=== PATIENT | female | born 1960 | race Caucasian/White ===

== ENCOUNTER 2017-03-01 12:01 | Observation (INO) | payer OTHER, MEDICARE ==
[2017-03-01] VITALS (9 sets, daily range): BP systolic 112–183; BP diastolic 67–108; PULSE 80–97; RESP 17–20; TEMP 97.8–98; O2SAT 95–99
[~2017-03-01] VITALS: Ht 162.6 cm; Wt 68.0 kg
[~2017-03-01 12:01] MED LIST: CHLO.12%30 SSP; CLIN150 PO; DIAZ10 PO; DICY10 PO; FENO1TAB76 PO; FIORTAB4 PO; LEVO.125 PO; MMW SS; OXYC1CON3 PO; OXYC60TA8 PO; PRED20 PO; PROT40TA PO; ZOVI400T15 PO
[2017-03-01] MEDS ORDERED: diphenhydrAMINE HCL 50 MG/ML VIAL IV PUSH ONE (12:45)
[2017-03-01] MEDS ORDERED: SODIUM CHLORIDE 0.9% FLUSH 10 ML FLUSH IVF PRN (12:45)
[2017-03-01] MEDS ORDERED: methylPREDNISolone SOD SUCC 40 MG/1 ML VIAL IV PUSH ONE (12:45)
[2017-03-01 13:00] LABS: AUTOMATED NEUTROPHIL # 6.4 TH/MM3 (1.8-7.7); BASOPHIL # 0.1 TH/MM3 (0-0.2); BASOPHIL % 0.6 % (0.0-2.0); EOSINOPHIL # 0.1 TH/MM3 (0-0.4); EOSINOPHIL % 1.2 % (0.0-4.0); HEMATOCRIT 42.4 % (35.0-46.0); HEMO FLAGS DIFF FINAL; LYMPH % 19.5 % (9.0-44.0); LYMPHOCYTE # 1.7 TH/MM3 (1.0-4.8); MEAN CELL VOLUME 101.3 FL (80.0-100.0); MEAN CORPUSCULAR HEMOGLOBIN 33.3 PG (27.0-34.0); MEAN CORPUSCULAR HGB CONC 32.9 % (32.0-36.0); MONO % 6.5 % (0.0-8.0); NEUT % 72.2 % (16.0-70.0); PLATELET COUNT 281 TH/MM3 (150-450); RED BLOOD COUNT 4.19 MIL/MM3 (4.00-5.30); RED CELL DISTRIBUTION WIDTH 13.1 % (11.6-17.2); WHITE BLOOD COUNT 8.9 TH/MM3 (4.0-11.0)
[2017-03-01 13:08] LABS: APTT (PATIENT) 26.6 SEC (24.3-30.1); PROTHROMBIN TIME - PATIENT 10.9 SEC (9.8-11.6)
[2017-03-01] MEDS ORDERED: ALDA100T PO (13:22)
[2017-03-01] MEDS ORDERED: FIORINAL2 PO (13:22)
[2017-03-01] MEDS ORDERED: DIAZ10 PO (13:22)
[2017-03-01] MEDS ORDERED: OXYC30TA PO (13:22)
[2017-03-01] MEDS ORDERED: LEVO.1 PO (13:22)
[2017-03-01] MEDS ORDERED: LEVO.05 PO (13:22)
[2017-03-01] MEDS ORDERED: OXYC40TA20 PO (13:22)
[2017-03-01 13:28] LABS: ALKALINE PHOSPHATASE 77 U/L (45-117); ALT (GPT) 19 U/L (10-53); ANION GAP 8 MEQ/L (5-15); BICARBONATE 28.5 MEQ/L (21.0-32.0); BLOOD UREA NITROGEN 8 MG/DL (7-18); CHLORIDE 97 MEQ/L (98-107); GLOMERULAR FILTRATION RATE 51 ML/MIN (>89); SODIUM (NA) 133 MEQ/L (136-145); TOTAL BILIRUBIN ADULT 0.4 MG/DL (0.2-1.0)
[2017-03-01] MEDS ORDERED: XARE10TA PO (13:28)
[2017-03-01 13:29] LABS: AST (GOT) 25 U/L (15-37); POTASSIUM 4.5 MEQ/L (3.5-5.1)
--- NOTE | 2017-03-01 14:14 | PD ---
HPI Chief Complaint: Chest Pain Time Seen by Provider: 12:07 Travel History International Travel<30 days: No Contact w/Intl Traveler<30days: No Traveled to known affect area: No History of Present Illness HPI This is a 56-year-old female who presents to the emergency department with chest discomfort that has been going on intermittently over the week and then has worsened today described as a stabbing pain in the left side of the chest, radiating down the left arm lasting for several minutes intermittently and then subsiding. She does acknowledge some shortness of breath and nausea. She was just hospitalized at an outside hospital and diagnosed with bilateral pulmonary emboli as well as pleural effusions. Patient was put on Eliquis. She says that the chest pain now is different from the chest pain that brought her into the hospital a week ago. She is due for a nuclear stress test but hasn't had one. Her last one was 10 years ago. She follows with Dr. Cabrera as an outpatient. PFSH Past Medical History Hx Anticoagulant Therapy: Yes (ELIQUIS) Cardiovascular Problems: Yes Chest Pain: Yes Diminished Hearing: No Gastrointestinal Disorders: Yes GERD: Yes Hiatal Hernia: Yes Musculoskeletal: Yes Respiratory: Yes (SHILPI PULMONARY EMBOLI) Migraines: Yes ?: Not Menopausal: Yes : 2 Para: 2 Past Surgical History Gynecologic Surgery: Yes Hysterectomy: Yes Neurologic Surgery: Yes (NECK FUSION X 2, BACK FUSION X 1) Tonsillectomy: Yes Other Surgery: Yes (HYSTERECTOMY, NECK/BACK FUSION, BREAST AUGMENTATION, RHINOPLASTY) Social History Alcohol Use: No Tobacco Use: No Substance Use: No Allergies-Medications (Allergen,Severity, Reaction): Coded Allergies: Contrast Media (Verified Allergy, Severe, Rash, 03/01/17) Iodine (Verified Allergy, Severe, Rash, 03/01/17) Sulfa (Verified Allergy, Severe, Anaphylaxis, 03/01/17) Darvocet-N 100 (Unverified Adverse Reaction, Unknown, itchy & red palms, ) pt. states above rx. Demerol (Verified Adverse Reaction, Unknown, red rash, 03/01/17) BLISTER ON HAND Reported Meds & Prescriptions Reported Meds & Active Scripts Active Reported Xarelto (Rivaroxaban) 10 Mg Tab 5 Mg PO BID Valium (Diazepam) 10 Mg Tab 10 Mg PO DAILY PRN Fiorinal (Butalbital/Aspirin/Caffeine) 50-325-40 Mg Cap 1 Cap PO Q4H PRN Do not exceed 6 capsules/day. Oxycodone (Oxycodone HCl) 30 Mg Tab 30 Mg PO Q8H PRN Aldactone (Spironolactone) 100 Mg Tab 100 Mg PO DAILY Synthroid (Levothyroxine Sodium) 50 Mcg Tab 50 Mcg PO EVERY OTHER DAY BRAND MEDICALLY NECESSARY Synthroid (Levothyroxine Sodium) 100 Mcg Tab 100 Mcg PO EVERY OTHER DAY BRAND MEDICALLY NECESSARY Oxycontin (Oxycodone HCl) 40 Mg Tab.er.12h 80 Mg PO BID Review of Systems Except as stated in HPI: all other systems reviewed are Neg Physical Exam Narrative GENERAL:Well appearing, no acute distress SKIN: Focused skin assessment warm and dry. HEAD: Atraumatic. Normocephalic. EYES: Pupils equal and round. No injection or drainage. ENT: Moist mucous membranes NECK: Trachea midline. CARDIOVASCULAR: Regular rate and rhythm. No murmur appreciated. RESPIRATORY: Clear to auscultation. Breath sounds equal bilaterally. GASTROINTESTINAL: Abdomen soft, non-tender, nondistended. MUSCULOSKELETAL: No obvious deformities. NEUROLOGICAL: Awake and alert. No obvious cranial nerve deficits. Moving all extremities. PSYCHIATRIC: Appropriate mood and affect; insight and judgment normal. Data Data Last Documented VS Vital Signs Date Time Temp Pulse Resp B/P Pulse Ox O2 Delivery O2 Flow Rate FiO2 03/01/17 14:00 80 18 143/76 97 Nasal Cannula 2 03/01/17 12:04 97.8 Orders Electrocardiogram (03/01/17 ) Diphenhydramine Inj (Benadryl Inj) (03/01/17 12:45) Methylprednisolone So Succ Inj (Solumedr (03/01/17 12:45) Electrocardiogram (03/01/17 12:45) Complete Blood Count With Diff (03/01/17 12:45) Comprehensive Metabolic Panel (03/01/17 12:45) Prothrombin Time / Inr (Pt) (03/01/17 12:45) Act Partial Throm Time (Ptt) (03/01/17 12:45) Troponin I (03/01/17 12:45) Ecg Monitoring (03/01/17 12:45) Bilateral Bp Monitoring (03/01/17 12:45) Iv Access Insert/Monitor (03/01/17 12:45) Oximetry (03/01/17 12:45) Oxygen Administration (03/01/17 12:45) Sodium Chloride 0.9% Flush (Ns Flush) (03/01/17 12:45) Ct Pulmonary Angiogram (03/01/17 12:45) Labetalol Inj (Trandate Inj) (03/01/17 14:15) Iohexol 350 Inj (Omnipaque 350 Inj) (03/01/17 15:09) Admit Order (Ed Use Only) (03/01/17 15:46) Labs Laboratory Tests Test 03/01/17 12:50 White Blood Count 8.9 TH/MM3 Red Blood Count 4.19 MIL/MM3 Hemoglobin 13.9 GM/DL Hematocrit 42.4 % Mean Corpuscular Volume 101.3 FL Mean Corpuscular Hemoglobin 33.3 PG Mean Corpuscular Hemoglobin 32.9 % Concent Red Cell Distribution Width 13.1 % Platelet Count 281 TH/MM3 Mean Platelet Volume 8.8 FL Neutrophils (%) (Auto) 72.2 % Lymphocytes (%) (Auto) 19.5 % Monocytes (%) (Auto) 6.5 % Eosinophils (%) (Auto) 1.2 % Basophils (%) (Auto) 0.6 % Neutrophils # (Auto) 6.4 TH/MM3 Lymphocytes # (Auto) 1.7 TH/MM3 Monocytes # (Auto) 0.6 TH/MM3 Eosinophils # (Auto) 0.1 TH/MM3 Basophils # (Auto) 0.1 TH/MM3 CBC Comment DIFF FINAL Differential Comment Prothrombin Time 10.9 SEC Prothromb Time International 1.0 RATIO Ratio Activated Partial 26.6 SEC Thromboplast Time Sodium Level 133 MEQ/L Potassium Level 4.5 MEQ/L Chloride Level 97 MEQ/L Carbon Dioxide Level 28.5 MEQ/L Anion Gap 8 MEQ/L Blood Urea Nitrogen 8 MG/DL Creatinine 1.11 MG/DL Estimat Glomerular Filtration 51 ML/MIN Rate Random Glucose 95 MG/DL Calcium Level 9.3 MG/DL Total Bilirubin 0.4 MG/DL Aspartate Amino Transf 25 U/L (AST/SGOT) Alanine Aminotransferase 19 U/L (ALT/SGPT) Alkaline Phosphatase 77 U/L Troponin I LESS THAN 0.02 NG/ML Total Protein 7.6 GM/DL Albumin 3.4 GM/DL [facility] Medical Decision Making Medical Screen Exam Complete: Yes Emergency Medical Condition: Yes Interpretation(s) Hypertensive EKG: Mild tachycardia, some T-wave inversion in V1 through V3 No leukocytosis Mild hyponatremia Last [address] Angiography 03/01/17 1245 Signed Impressions: Service Date/Time: Wednesday, March 01, 2017 14:57 - CONCLUSION: Negative for central pulmonary emboli Pedro Joyce MD FACR Differential Diagnosis acute coronary syndrome, pulmonary embolism, pneumonia, costochondritis Narrative Course This is a 56-year-old female whose had about a week of intermittent chest discomfort that radiates to her left arm with some shortness of breath and nausea. EKG demonstrates some T-wave inversions in V1 through V3. She was just admitted to an outside hospital in the setting of a diagnosis of pulmonary embolism. Here she was quite hypertensive. She is placed in a monitored an IV was established. Labs are obtained which demonstrate a normal troponin. A CT pulmonary angiogram was obtained which demonstrates no PE currently. I reviewed the CT findings from the outside hospital. She had 2 subsegmental PEs found. Unclear if this were were causing her symptoms but now she has resolution on imaging and she continues to have new and worsening symptoms. She is due to have a nuclear stress test with Dr. Cabrrea and she hasn't had one in 10 years. I think it's reasonable to keep her in observation in the chest pain center and to consider wrist ratification tomorrow morning given her symptoms are escalating. Diagnosis Primary Impression: Chest pain Qualified Code: R07.9 - Chest pain, unspecified type Admitting Information Admitting Physician Requests: Observation Gertrude Soares MD Mar 01, 2017 14:14
[2017-03-01] MEDS ORDERED: LABETALOL HCL 100 MG/20 ML VIAL IV PUSH PRN (14:15)
[2017-03-01] MEDS ORDERED: IOHEXOL 350 MG/ML 10 ML VIAL (for RAD DIAG) IV ONE (15:09)
--- NOTE | 2017-03-01 15:23 | RADRPT ---
EXAM DATE/TIME: 03/01/2017 14:57 [facility] COMPARISON: No previous studies available for comparison. INDICATIONS : Short of breath, evaluate for pulmonary embolism. IV CONTRAST: 50 cc Omnipaque 350 (iohexol) IV RADIATION DOSE: 6.76 CTDIvol (mGy) MEDICAL HISTORY : Gastroesophageal reflux disease. Hiatal hernia SURGICAL HISTORY : Tonsillectomy. Hysterectomy. ENCOUNTER: Initial ACUITY: 1 day PAIN SCALE: 3/10 LOCATION: Left chest Patient was premedicated for underlying contrast media allergy. TECHNIQUE: Volumetric scanning of the chest was performed using a pulmonary embolism protocol MIP images were re constructed. Using automated exposure control and adjustment of the mA and/or kV according to patien t size, radiation dose was kept as low as reasonably achievable to obtain optimal diagnostic quality images. DICOM format image data is available electronically for review and comparison. Follow-up recommendations for incidentally detected pulmonary nodules are based at a minimum on nodul e size and patient risk factors according to Fleischner Society Guidelines. FINDINGS: PULMONARY ARTERIES: No filling defects are seen in the pulmonary arteries through the segmental level. LUNGS: There is no consolidation or pneumothorax . No concerning pulmonary nodule is visualized. PLEURAE: There is no pleural thickening or pleural effusion. MEDIASTINUM: There is good visualization of the great vessels of the middle mediastinum. No evidence of mediastin al or hilar adenopathy/mass. MUSCULOSKELETAL: Within normal limits for patient age. MISCELLANEOUS: Breast implants are evident. There is again nonspecific 1.6 there are mass left kidney incompletely evaluated. CONCLUSION: Negative for central pulmonary emboli Pedro Joyce MD FACR on March 01, 2017 at 15:20 Board Certified Radiologist. This report was verified electronically.
[2017-03-01] MEDS ORDERED: NON-FORMULARY DRUG (Oxycodone 30 MG) PO PRN (16:45)
[2017-03-01] MEDS ORDERED: DIAZEPAM 10 MG TAB PO PRN (16:45)
[2017-03-01] MEDS ORDERED: ONDANSETRON HCL 4 MG/2 ML VIAL IV PRN (17:00)
[2017-03-01] MEDS ORDERED: SODIUM CHLORIDE 0.9% FLUSH 5 ML FLUSH IVF PRN (17:00)
[2017-03-01] MEDS: PANTOPRAZOLE SOD 40 MG DELAYED RELEASE TAB PO SCH (17:00)
--- NOTE | 2017-03-01 17:01 | HHI.HP ---
[facility] Primary Care Physician Krystal Torres DO Chief Complaint Chest pain History of Present Illness This is a 56-year-old female that presents to ED to evaluate chest discomfort. She was recently diagnosed with a pulmonary embolus last week and has been on Eliquis. She states that this discomfort is different than the discomfort that she has been having secondary to the pulmonary emboli. She states that the discomfort began this morning. It was in the center of her chest. Is a very severe sharp stabbing discomfort. It felt deep. It will last for a few minutes but continue to recur intermittently for couple hours. She was short of breath with it. She was nauseous with it. Denies diaphoresis. Denies knowledge of coronary artery disease and states she follows with Dr. Cabrera of cardiology secondary to family history of coronary artery disease. She has had a stress test in the past states it is been years ago. She believes she is scheduled this coming week to have a stress test with Dr. Cabrera. Review of Systems General: Patient denies fevers, chills recent, and recent travel HEENT: Patient denies headache, sore throat, difficulty swallowing. Cardiovascular: Has the chest discomfort as mentioned above. Denies sensation of heart beating rapidly or irregularly. No syncope. Denies diaphoresis. Respiratory: She has been short of breath. Denies inspirational chest discomfort. Denies coughing wheezing or hemoptysis. GI: She has been nauseous. Patient denies vomiting, diarrhea, abdominal pain, bloody stools. Musculoskeletal: Complains of chronic back pain. Patient denies joint pain or edema. Denies calf pain or edema. Neurovascular: Patient denies numbness, tingling, weakness in extremities. Denies headache. Endocrine: Denies polyuria and polydipsia. Hematologic: Denies easy bruising. Skin: Denies rash or itching. Past Family Social History Allergies: Coded Allergies: Contrast Media (Verified Allergy, Severe, Rash, 03/01/17) Iodine (Verified Allergy, Severe, Rash, 03/01/17) Sulfa (Verified Allergy, Severe, Anaphylaxis, 03/01/17) Darvocet-N 100 (Unverified Adverse Reaction, Unknown, itchy & red palms, ) pt. states above rx. Demerol (Verified Adverse Reaction, Unknown, red rash, 03/01/17) BLISTER ON HAND Past Medical History Recently diagnosed with pulmonary emboli and is on Eliquis. Chronic back pain. Hypothyroidism. Migraines. Denies hypertension, hyperlipidemia, diabetes, and known CAD. Past Surgical History Multiple back surgeries. Hysterectomy. Reported Medications Reported Meds & Active Scripts Active Reported Xarelto (Rivaroxaban) 10 Mg Tab 5 Mg PO BID Valium (Diazepam) 10 Mg Tab 10 Mg PO DAILY PRN Fiorinal (Butalbital/Aspirin/Caffeine) 50-325-40 Mg Cap 1 Cap PO Q4H PRN Do not exceed 6 capsules/day. Oxycodone (Oxycodone HCl) 30 Mg Tab 30 Mg PO Q8H PRN Aldactone (Spironolactone) 100 Mg Tab 100 Mg PO DAILY Synthroid (Levothyroxine Sodium) 50 Mcg Tab 50 Mcg PO EVERY OTHER DAY BRAND MEDICALLY NECESSARY Synthroid (Levothyroxine Sodium) 100 Mcg Tab 100 Mcg PO EVERY OTHER DAY BRAND MEDICALLY NECESSARY Oxycontin (Oxycodone HCl) 40 Mg Tab.er.12h 80 Mg PO BID Active Ordered Medications Current Medications Medications (Trade) Dose Ordered Sig/Victor M Route Start Time Stop Time Status Last Admin (NS Flush) 2 ml UNSCH PRN IVF 03/01/17 12:45 (Trandate Inj) 10 mg Q20M PRN IV PUSH 03/01/17 14:15 (OxyCONTIN CR) 80 mg BID PO 03/01/17 21:00 UNV (Valium) 10 mg DAILY PRN PO 03/01/17 16:45 UNV (Xarelto) 5 mg BID PO 03/01/17 21:00 UNV (Aldactone) 100 mg DAILY PO 03/02/17 09:00 UNV Non-Formulary Medication 30 mg Q8H PRN PO 03/01/17 16:45 UNV Family History She states that her father at age 59 of coronary artery disease. Her mother had a myocardial infarction as well. Social History Patient denies smoking. Denies alcohol or illicit drug. Physical Exam Vital Signs Vital Signs Date Time Temp Pulse Resp B/P Pulse Ox O2 Delivery O2 Flow Rate FiO2 03/01/17 14:00 80 18 143/76 97 Nasal Cannula 2 03/01/17 12:59 96 Room Air 03/01/17 12:59 180/108 165/105 03/01/17 12:59 Nasal Cannula 2 03/01/17 12:40 84 18 180/108 98 Nasal Cannula 2 03/01/17 12:18 93 20 180/108 96 Room Air 03/01/17 12:15 91 20 98 Room Air 03/01/17 12:04 97.8 97 17 183/108 98 Physical Exam GENERAL: This is a well-nourished, well-developed patient, in no apparent distress. Patient speaks in clear complete sentences. Patient is pleasant. HEENT: Head is atraumatic and normocephalic. Neck is supple without lymphadenopathy and trachea is midline. No JVD or carotid bruits. CARDIOVASCULAR: Regular rate and rhythm without murmurs, gallops, or rubs. RESPIRATORY: Clear to auscultation. Breath sounds equal bilaterally. No wheezes , rales, or rhonchi. Chest wall is nontender. No use of accessory muscles. GASTROINTESTINAL: Abdomen is nontender, nondistended. Abdomen soft. No obvious pulsatile mass or bruit. Normal bowel sounds in all quadrants. MUSCULOSKELETAL: There is discomfort with repositioning and movement of the lower back. This is chronic. Patient is moving upper and lower extremities freely. No calf tenderness or edema, no Homans sign. Strong pulses in upper and lower extremities. NEUROLOGICAL: Patient is alert and oriented. Cranial nerves 2-12 are grossly intact. No focal deficits and speech is clear. SKIN: No rash and turgor is normal. Laboratory Laboratory Tests Test 03/01/17 12:50 White Blood Count 8.9 Red Blood Count 4.19 Hemoglobin 13.9 Hematocrit 42.4 Mean Corpuscular Volume 101.3 Mean Corpuscular Hemoglobin 33.3 Mean Corpuscular Hemoglobin 32.9 Concent Red Cell Distribution Width 13.1 Platelet Count 281 Mean Platelet Volume 8.8 Neutrophils (%) (Auto) 72.2 Lymphocytes (%) (Auto) 19.5 Monocytes (%) (Auto) 6.5 Eosinophils (%) (Auto) 1.2 Basophils (%) (Auto) 0.6 Neutrophils # (Auto) 6.4 Lymphocytes # (Auto) 1.7 Monocytes # (Auto) 0.6 Eosinophils # (Auto) 0.1 Basophils # (Auto) 0.1 CBC Comment DIFF FINAL Differential Comment Prothrombin Time 10.9 Prothromb Time International 1.0 Ratio Activated Partial 26.6 Thromboplast Time Sodium Level 133 Potassium Level 4.5 Chloride Level 97 Carbon Dioxide Level 28.5 Anion Gap 8 Blood Urea Nitrogen 8 Creatinine 1.11 Estimat Glomerular Filtration 51 Rate Random Glucose 95 Calcium Level 9.3 Total Bilirubin 0.4 Aspartate Amino Transf 25 (AST/SGOT) Alanine Aminotransferase 19 (ALT/SGPT) Alkaline Phosphatase 77 Troponin I LESS THAN 0.02 Total Protein 7.6 Albumin 3.4 Result Diagram: 03/01/17 1250 03/01/17 1250 Imaging Last [address] Angiography 03/01/17 1245 Signed Impressions: Service Date/Time: Wednesday, March 01, 2017 14:57 - CONCLUSION: Negative for central pulmonary emboli Pedro Joyce MD FACR Course Initial EKG has sinus rhythm without significant ST segment depressions or elevations. Assessment and Plan Assessment and Plan * Chest pain: Patient will continue to have serial cardiac enzymes and EKGs for ruling out purposes. She will be seen by Dr. Cisse of cardiology in the chest pain center in the morning. 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 Patient will have a Lexiscan and if she rules out. She'll be discharged home if stress test is nonischemic with instructions to follow-up with her PCP and her truck rental manager. * Recent PE: Continue Eliquis. * Hypothyroidism: Continue current medication. * Chronic back pain: Continue current medication. Patient is stable at this time. She is agreeable to this plan. Shola Bashir Mar 01, 2017 17:01
[2017-03-01] MEDS ORDERED: SODIUM CHLORID 0.9% 500 ML INJ 500 ML IV SCH (17:15)
[2017-03-01] MEDS ORDERED: PILL SPLITTER OTHER PRN (17:15)
[2017-03-01 19:19] LABS: CREATINE KINASE 35 U/L (26-192)
[2017-03-01] MEDS ORDERED: SPIRONOLACTONE 100 MG TAB PO SCH (21:00)
[2017-03-01] MEDS: SODIUM CHLORIDE 0.9% FLUSH 5 ML FLUSH IVF SCH (21:00)
[2017-03-01] MEDS: RIVAROXABAN 10 MG TAB PO SCH (21:50)
[2017-03-01] MEDS: oxyCODONE HCL 80 MG CONTROLLED RELEASE TAB PO SCH (21:51)
[2017-03-01 23:04] LABS: CREATINE KINASE 23 U/L (26-192)
[2017-03-02] VITALS (7 sets, daily range): BP systolic 101–125; BP diastolic 73–77; PULSE 62–84; RESP 16–20; TEMP 97.6–98; O2SAT 94–98
[2017-03-02] MEDS ORDERED: LEVOTHYROXINE SODIUM 50 MCG TAB PO SCH (06:00)
[2017-03-02] MEDS ORDERED: REGADENOSON INJ 0.4 MG/5 ML SYR ONE (08:33)
--- NOTE | 2017-03-02 08:38 | EKG ---
Date Performed: 03/01/2017 Time Performed: 19:13:39 PTAGE: 56 years EKG: Sinus rhythm LOW QRS VOLTAGE IN PRECORDIAL LEADS NONSPECIFIC T CHANGES IN SEPTAL LEADS BORDERLINE ECG NO SIG RENDON GE FROM PRIOR PREVIOUS TRACING : 03/01/2017 16.43 DOCTOR: Henrry Cisse Interpretating Date/Time 03/02/2017 08:37:43
--- NOTE | 2017-03-02 08:40 | EKG ---
Date Performed: 03/01/2017 Time Performed: 12:26:11 PTAGE: 56 years EKG: Sinus rhythm LOW QRS VOLTAGE IN PRECORDIAL LEADS NONSPECIFIC T WAVE CHANGES BORDERLINE ECG PREVIOUS TRACING : 12/09/2007 14.26 DOCTOR: Henrry Cisse Interpretating Date/Time 03/02/2017 08:39:25
--- NOTE | 2017-03-02 08:40 | EKG ---
Date Performed: 03/01/2017 Time Performed: 16:43:15 PTAGE: 56 years EKG: Sinus rhythm LOW QRS VOLTAGE IN PRECORDIAL LEADS BORDERLINE ECG NOSIGNIFICANT CHANGE PREVIOUS TRACING : 03/01/2017 12.26 DOCTOR: Henrry Cisse Interpretating Date/Time 03/02/2017 08:38:48
[2017-03-02] MEDS ORDERED: SPIRONOLACTONE 100 MG TAB PO SCH (09:00)
[2017-03-02] MEDS: SODIUM CHLORIDE 0.9% FLUSH 5 ML FLUSH IVF SCH (09:00)
[2017-03-02] MEDS: PANTOPRAZOLE SOD 40 MG DELAYED RELEASE TAB PO SCH (09:00)
[2017-03-02] MEDS: oxyCODONE HCL 80 MG CONTROLLED RELEASE TAB PO SCH (10:01)
[2017-03-02] MEDS: RIVAROXABAN 10 MG TAB PO SCH (10:01)
--- NOTE | 2017-03-02 12:50 | RADRPT ---
EXAM DATE/TIME: 03/02/2017 08:09 [facility] COMPARISON: No previous studies available for comparison. INDICATIONS : Left chest pain with dyspnea. Angina. DOSE: 27.1 mCi Tc99m Myoview at stress. 8.8 mCi Tc99m Myoview at rest. 0.4 mg Lexiscan STRESS SYMPTOMS: Dyspnea, facial flush and hot. EJECTION FRACTION: > 70% MEDICAL HISTORY : Gastroesophageal reflux disease. Pulmonary embolism SURGICAL HISTORY : Tonsillectomy. Hysterectomy. ENCOUNTER: Initial ACUITY: 1 week PAIN SCALE: 7/10 LOCATION: Left chest TECHNIQUE: The patient underwent pharmacologic stress with infusion of prescribed dose. Continuous ECG tracing was monitored during stress. Gated SPECT imaging was performed after stress and conventional SPECT i maging was performed at rest. The examination was performed on a SPECT/CT scanner, both attenuation and non-corrected datasets were reviewed. FINDINGS: DISTRIBUTION: The maximum perfused segment at stress is in the lateral wall. PERFUSION STUDY: The pattern of perfusion at stress is within normal limits. GATED STUDY: There is intact wall motion and thickening without hypokinetic or dyskinetic segments. CONCLUSION: Negative study. No evidence of stress-induced ischemia. Normal wall motion. RISK CATEGORY: Low Jose Raul Flores MD on March 02, 2017 at 12:48 Board Certified Radiologist. This report was verified electronically.
--- NOTE | 2017-03-02 13:14 | HHI.DCPOC ---
Discharge Care Plan Diagnosis: (1) Chest pain Goals to Promote Your Health * To prevent worsening of your condition and complications * To maintain your health at the optimal level Directions to Meet Your Goals Take your medications as prescribed Follow your dietary instruction Follow activity as directed Keep your appointments as scheduled Take your immunizations and boosters as scheduled If your symptoms worsen call your PCP, if no PCP go to Urgent Care Center or Emergency Room Smoking is Dangerous to Your Health. Avoid second hand smoke Call the 24-hour hour crisis hotline for domestic abuse at Shola Bashir Mar 02, 2017 13:14
[2017-03-03] MEDS ORDERED: LEVOTHYROXINE SODIUM 100 MCG TAB PO SCH (06:00)
--- NOTE | 2017-03-03 11:32 | TR ---
Date Performed: 03/02/2017 Time Performed: 09:04:38 DOCTOR: Henrry Cisse DRUG LIST: CLINICAL HISTORY: REASON FOR TEST: CHEST PAIN REASON FOR ENDING: OBSERVATION: CONCLUSION: Lexiscan stress test was performed under standard four minute protocol. Radionuclide was injected one minute prior to ending the test. No electrocardiographic abormalities were present to suggest ischemia. Nuclear imaging and interpretation are pending. COMMENTS: Negative study pending review of scan.
== END 2017-03-02 14:31 | disposition home or self-care (01) ==
LOC: NEPC 12:01 → NEDA 15:48 → NEPFCDU 18:32
PROVIDERS: ADMIT Internal Medicine Interventional Cardiology; ATTEND Internal Medicine Interventional Cardiology
DX: R07.9 Chest pain, unspecified (principal); R00.0 Tachycardia, unspecified; E87.1 Hypo-osmolality and hyponatremia; R06.02 Shortness of breath; R03.0 Elevated blood-pressure reading, without diagnosis of hypertension; R06.00 Dyspnea, unspecified; R11.0 Nausea; I20.9 Angina pectoris, unspecified; E03.9 Hypothyroidism, unspecified; M54.9 Dorsalgia, unspecified; G89.29 Other chronic pain; G43.909 Migraine, unspecified, not intractable, without status migrainosus; I26.99 Other pulmonary embolism without acute cor pulmonale; K21.9 Gastro-esophageal reflux disease without esophagitis; J90 Pleural effusion, not elsewhere classified; Z79.01 Long term (current) use of anticoagulants; Z79.899 Other long term (current) drug therapy; Z86.711 Personal history of pulmonary embolism; Z82.49 Family history of ischemic heart disease and other diseases of the circulatory system
CPT/HCPCS: 71275; 78452; 80053; 82550; 84484; 85025; 85610; 85730; 93005; 93017; 96365; 96366; 96375; 99285; A9502; G0378; J1200; J2785; J2920; J7040; Q9967

== ENCOUNTER 2017-09-16 17:03 | Emergency (ER) | payer OTHER, MEDICARE ==
[~2017-09-16] VITALS: Ht 162.6 cm; Wt 70.0 kg
[~2017-09-16 17:03] MED LIST changes: +ALDA100T PO; -CHLO.12%30 SSP; -CLIN150 PO; -DICY10 PO; -FENO1TAB76 PO; +FIORINAL2 PO; -FIORTAB4 PO; +LEVO.05 PO; +LEVO.1 PO; -LEVO.125 PO; -MMW SS; -OXYC1CON3 PO; +OXYC30TA PO; +OXYC40TA20 PO; -OXYC60TA8 PO; -PRED20 PO; -PROT40TA PO; +XARE10TA PO; -ZOVI400T15 PO
[2017-09-16 17:05] VITALS: BP 158/94; PULSE 86; RESP 16; TEMP 98.4; O2SAT 98
[2017-09-16] MEDS ORDERED: BETH10TA2 PO (17:53)
[2017-09-16] MEDS ORDERED: ROSU1TAB6 PO (17:53)
[2017-09-16 18:34] LABS: AUTOMATED NEUTROPHIL # 6.1 TH/MM3 (1.8-7.7); BASOPHIL # 0.1 TH/MM3 (0-0.2); BASOPHIL % 0.9 % (0.0-2.0); EOSINOPHIL # 0.1 TH/MM3 (0-0.4); HEMATOCRIT 39.3 % (35.0-46.0); HEMOGLOBIN 13.6 GM/DL (11.6-15.3); LYMPH % 22.5 % (9.0-44.0); MEAN CELL VOLUME 100.9 FL (80.0-100.0); MEAN CORPUSCULAR HEMOGLOBIN 34.8 PG (27.0-34.0); MEAN CORPUSCULAR HGB CONC 34.5 % (32.0-36.0); MEAN PLATELET VOLUME 9.6 FL (7.0-11.0); MONO % 7.5 % (0.0-8.0); MONOCYTE # 0.7 TH/MM3 (0-0.9); NEUT % 68.1 % (16.0-70.0); PLATELET COUNT 275 TH/MM3 (150-450); RED CELL DISTRIBUTION WIDTH 14.2 % (11.6-17.2)
[2017-09-16 18:56] LABS: ALBUMIN 4.2 GM/DL (3.4-5.0); AST (GOT) 23 U/L (15-37); BICARBONATE 31.7 MEQ/L (21.0-32.0); BLOOD UREA NITROGEN 14 MG/DL (7-18); CALCIUM 9.3 MG/DL (8.5-10.1); CHLORIDE 99 MEQ/L (98-107); CREATININE 1.42 MG/DL (0.50-1.00); GLOMERULAR FILTRATION RATE 38 ML/MIN (>89); GLUCOSE,RANDOM 121 MG/DL (74-106); SODIUM (NA) 137 MEQ/L (136-145)
[2017-09-16 18:57] LABS: ALT (GPT) 27 U/L (10-53)
[2017-09-16 19:00] LABS: ALKALINE PHOSPHATASE 72 U/L (45-117); TOTAL BILIRUBIN ADULT 0.4 MG/DL (0.2-1.0); TOTAL PROTEIN 7.8 GM/DL (6.4-8.2); TROPONIN I LESS THAN 0.02 NG/ML (0.02-0.05)
--- NOTE | 2017-09-16 19:19 | RADRPT ---
EXAM DATE/TIME: 09/16/2017 18:40 [facility] COMPARISON: No previous studies available for comparison. INDICATIONS : Weakness and left arm pain. RADIATION DOSE: 51.02 CTDIvol (mGy) MEDICAL HISTORY : None SURGICAL HISTORY : Hysterectomy. Fusion, cervical.Fusion, lumbar. ENCOUNTER: Initial ACUITY: 1 day PAIN SCALE: 5/10 LOCATION: cranial TECHNIQUE: Multiple contiguous axial images were obtained of the head. Using automated exposure control and adj ustment of the mA and/or kV according to patient size, radiation dose was kept as low as reasonably a chievable to obtain optimal diagnostic quality images. DICOM format image data is available electro nically for review and comparison. FINDINGS: CEREBRUM: The ventricles are normal for age. No evidence of midline shift, mass lesion, hemorrhage or acute in farction. No extra-axial fluid collections are seen. POSTERIOR FOSSA: The cerebellum and brainstem are intact. The 4th ventricle is midline. The cerebellopontine angle i s unremarkable. EXTRACRANIAL: The visualized portion of the orbits is intact. SKULL: The calvaria is intact. No evidence of skull fracture. CONCLUSION: Normal examination. Jose Raul Ramirez MD on September 16, 2017 at 19:17 Board Certified Radiologist. This report was verified electronically.
--- NOTE | 2017-09-16 19:27 | PD ---
HPI Chief Complaint: Numbness/Tingling Time Seen by Provider: 17:40 Travel History International Travel<30 days: No Contact w/Intl Traveler<30days: No Traveled to known affect area: No History of Present Illness HPI Patient is a 56-year-old female who comes in complaining of left arm tingling. She says it started this morning. She has a history of cervical spine issues and has had several surgeries. She says it felt like this in the past when she was having an issue with her spine. She denies any chest pain or shortness of breath. She denies any injury. She says she is having neck and back pain. She denies any headache. She denies fever chills. She says she has not taken her extended release oxycodone since 5 AM. Movement makes her symptoms worse. Severity is mild to moderate. She does have an appointment with her orthopedic surgeon tomorrow. PFSH Past Medical History Hx Anticoagulant Therapy: Yes (ELIQUIS) Cardiovascular Problems: Yes Chest Pain: Yes Diminished Hearing: No Gastrointestinal Disorders: Yes GERD: Yes Hiatal Hernia: Yes Musculoskeletal: Yes Respiratory: Yes (SHILPI PULMONARY EMBOLI) Migraines: Yes ?: Not Menopausal: Yes : 2 Para: 2 Past Surgical History Gynecologic Surgery: Yes Hysterectomy: Yes Neurologic Surgery: Yes (NECK FUSION X 2, BACK FUSION X 1) Tonsillectomy: Yes Other Surgery: Yes (HYSTERECTOMY, NECK/BACK FUSION, BREAST AUGMENTATION, RHINOPLASTY) Social History Alcohol Use: No Tobacco Use: No Substance Use: No Allergies-Medications (Allergen,Severity, Reaction): Coded Allergies: Sulfa (Sulfonamide Antibiotics) (Unverified Allergy, Severe, Anaphylaxis, 03/12/17) diatrizoate meglumine (Unverified Allergy, Severe, Rash, 03/12/17) gadobenic acid (Unverified Allergy, Severe, Rash, 03/12/17) gadodiamide (Unverified Allergy, Severe, Rash, 03/12/17) gadoteridol (Unverified Allergy, Severe, Rash, 03/12/17) iodine (Unverified Allergy, Severe, Rash, 03/12/17) iodixanol (Unverified Allergy, Severe, Rash, 03/12/17) iohexol (Unverified Allergy, Severe, Rash, 03/12/17) potassium iodide (Unverified Allergy, Severe, Rash, 03/12/17) povidone-iodine (Unverified Allergy, Severe, Rash, 03/12/17) sodium iodide (Unverified Allergy, Severe, Rash, 03/12/17) sodium iodide (Unverified Allergy, Severe, Rash, 03/12/17) acetaminophen (Unverified Adverse Reaction, Unknown, itchy & red palms, ) pt. states above rx. meperidine (Unverified Adverse Reaction, Unknown, red rash, 03/12/17) BLISTER ON HAND propoxyphene (Unverified Adverse Reaction, Unknown, itchy & red palms, ) pt. states above rx. Reported Meds & Prescriptions Reported Meds & Active Scripts Active Reported Rosuvastatin (Rosuvastatin Calcium) 10 Mg Tab 10 Mg PO HS Bethanechol 10 Mg Tab 10 Mg PO QID Valium (Diazepam) 10 Mg Tab 10 Mg PO DAILY PRN Fiorinal (Butalbital/Aspirin/Caffeine) 50-325-40 Mg Cap 1 Cap PO Q4H PRN Do not exceed 6 capsules/day. Oxycodone (Oxycodone HCl) 30 Mg Tab 30 Mg PO Q8H PRN Synthroid (Levothyroxine Sodium) 100 Mcg Tab 100 Mcg PO EVERY OTHER DAY BRAND MEDICALLY NECESSARY Oxycontin (Oxycodone HCl) 40 Mg Tab.er.12h 80 Mg PO BID Review of Systems Except as stated in HPI: all other systems reviewed are Neg General / Constitutional: No: Fever, Chills Eyes: No: Blurred Vision HENT: No: Headaches, Lightheadedness Cardiovascular: No: Chest Pain or Discomfort Respiratory: No: Shortness of Breath Gastrointestinal: No: Nausea, Vomiting Musculoskeletal: Positive: Pain Skin: No Rash, No Change in Pigmentation Neurologic: Positive: Paresthesia, No: Weakness, Dizziness Physical Exam Narrative GENERAL: Awake and alert, no acute distress. SKIN: Focused skin assessment warm/dry. HEAD: Atraumatic. Normocephalic. EYES: Pupils equal and round. No scleral icterus. Extraocular movements intact. ENT: Mucous membranes pink and moist. NECK: Trachea midline. No JVD. No cervical spine tenderness. Tender to palpation of both trapezius muscles. CARDIOVASCULAR: Regular rate and rhythm. No murmur appreciated. RESPIRATORY: No accessory muscle use. Clear to auscultation. Breath sounds equal bilaterally. GASTROINTESTINAL: Abdomen soft, non-tender, nondistended. MUSCULOSKELETAL: No obvious deformities. No clubbing. No cyanosis. No edema. NEUROLOGICAL: Awake and alert. No obvious cranial nerve deficits. Motor grossly within normal limits. Normal speech. Equal strength of the upper extremities. No weakness of the lower extremities. Pulses intact. PSYCHIATRIC: Appropriate mood and affect; insight and judgment normal. Data Data Last Documented VS Vital Signs Date Time Temp Pulse Resp B/P (MAP) Pulse Ox O2 Delivery O2 Flow Rate FiO2 09/16/17 17:05 98.4 86 16 158/94 (115) 98 Orders Orders Iv Access Insert/Monitor (09/16/17 17:51) Complete Blood Count With Diff (09/16/17 17:51) Comprehensive Metabolic Panel (09/16/17 17:51) Troponin I (09/16/17 17:51) Electrocardiogram (09/16/17 ) Ct Brain W/O Iv Contrast(Rout) (09/16/17 ) Ct Cerv Spine W/O Contrast (09/16/17 ) Oxycodone (Roxicodone) (09/16/17 18:00) Ed Discharge Order (09/16/17 19:57) Labs Laboratory Tests Test 09/16/17 18:00 White Blood Count 9.0 TH/MM3 Red Blood Count 3.90 MIL/MM3 Hemoglobin 13.6 GM/DL Hematocrit 39.3 % Mean Corpuscular Volume 100.9 FL Mean Corpuscular Hemoglobin 34.8 PG Mean Corpuscular Hemoglobin Concent 34.5 % Red Cell Distribution Width 14.2 % Platelet Count 275 TH/MM3 Mean Platelet Volume 9.6 FL Neutrophils (%) (Auto) 68.1 % Lymphocytes (%) (Auto) 22.5 % Monocytes (%) (Auto) 7.5 % Eosinophils (%) (Auto) 1.0 % Basophils (%) (Auto) 0.9 % Neutrophils # (Auto) 6.1 TH/MM3 Lymphocytes # (Auto) 2.0 TH/MM3 Monocytes # (Auto) 0.7 TH/MM3 Eosinophils # (Auto) 0.1 TH/MM3 Basophils # (Auto) 0.1 TH/MM3 CBC Comment DIFF FINAL Differential Comment Blood Urea Nitrogen 14 MG/DL Creatinine 1.42 MG/DL Random Glucose 121 MG/DL Total Protein 7.8 GM/DL Albumin 4.2 GM/DL Calcium Level 9.3 MG/DL Alkaline Phosphatase 72 U/L Aspartate Amino Transf (AST/SGOT) 23 U/L Alanine Aminotransferase (ALT/SGPT) 27 U/L Total Bilirubin 0.4 MG/DL Sodium Level 137 MEQ/L Potassium Level 3.5 MEQ/L Chloride Level 99 MEQ/L Carbon Dioxide Level 31.7 MEQ/L Anion Gap 6 MEQ/L Estimat Glomerular Filtration Rate 38 ML/MIN Troponin I LESS THAN 0.02 NG/ML MDM Medical Decision Making Medical Screen Exam Complete: Yes Emergency Medical Condition: Yes Medical Record Reviewed: Yes Interpretation(s) ECG shows normal sinus rhythm at 88, no ST elevation or depression, normal intervals. Differential Diagnosis Radiculopathy versus muscle strain versus TIA Narrative Course Patient is a 56-year-old female who comes in complaining of paresthesias of her left arm. Exam shows no evidence of weakness. IV established, labs sent. Labs show no acute abnormalities. CT head and cervical spine performed CT head shows no acute abnormalities. Diagnosis Primary Impression: Cervical radiculopathy Patient Instructions: Cervical Radiculopathy (ED), General Instructions Additional Instructions: Take pain medicine as prescribed. Follow up with your doctors. Return to the ED as needed for any worsening symptoms. Disposition: 01 DISCHARGE HOME Condition: Stable Kate Zavala MD Sep 16, 2017 19:27
--- NOTE | 2017-09-16 19:46 | RADRPT ---
EXAM DATE/TIME: 09/16/2017 18:40 [facility] COMPARISON: No previous studies available for comparison. INDICATIONS : Left arm pain. RADIATION DOSE: 39.70 CTDIvol (mGy) MEDICAL HISTORY : None SURGICAL HISTORY : Hysterectomy. Fusion, cervical.Fusion, lumbar. ENCOUNTER: Initial ACUITY: 1 day PAIN SCALE: 10/10 LOCATION: neck TECHNIQUE: Volumetric scanning of the cervical spine was performed. Multiplanar reconstructions in the sagittal, coronal and oblique axial planes were performed. Using automated exposure control and adjustment o f the mA and/or kV according to patient size, radiation dose was kept as low as reasonably achievable to obtain optimal diagnostic quality images. DICOM format image data is available electronically f or review and comparison. FINDINGS: There has been previous cervical fusion surgery with ventral plate and screws at C6-7 and solid bony fusion also present at C4-5 C5-6. The alignment is satisfactory. There is no evidence of cervical spi ne fracture. No significant bony canal or foraminal compromise is identified. There is no evidence of paraspinal hematoma. CONCLUSION: No acute bony injury in the cervical spine. Jose Raul Ramirez MD on September 16, 2017 at 19:43 Board Certified Radiologist. This report was verified electronically.
--- NOTE | 2017-09-17 18:54 | EKG ---
Date Performed: 09/16/2017 Time Performed: 17:55:03 PTAGE: 56 years EKG: Sinus rhythm LOW QRS VOLTAGE IN PRECORDIAL LEADS BORDERLINE ECG Since the prior tracing, there has been no signif icant change PREVIOUS TRACING : 03/01/2017 19.13 DOCTOR: Crystal Markham Interpretating Date/Time 09/17/2017 18:48:37
== END 2017-09-16 20:43 | disposition home or self-care (01) ==
LOC: NEPE 17:03
DX: M54.12 Radiculopathy, cervical region (principal); R94.31 Abnormal electrocardiogram [ECG] [EKG]; K21.9 Gastro-esophageal reflux disease without esophagitis; Z86.711 Personal history of pulmonary embolism; Z79.01 Long term (current) use of anticoagulants; Z98.1 Arthrodesis status
CPT/HCPCS: 70450; 72125; 80053; 84484; 85025; 93005; 99284

== ENCOUNTER 2018-01-15 13:56 | Observation (INO) | payer OTHER, MEDICARE ==
[~2018-01-15] VITALS: Ht 162.6 cm; Wt 65.0 kg
[2018-01-15] VITALS (7 sets, daily range): BP systolic 119–143; BP diastolic 82–93; PULSE 80–93; RESP 16–18; TEMP 98.1–98.7; O2SAT 95–99
[~2018-01-15 13:56] MED LIST changes: -ALDA100T PO; +BETH10TA2 PO; -LEVO.05 PO; +ROSU1TAB6 PO; -XARE10TA PO
[2018-01-15] MEDS ORDERED: diphenhydrAMINE HCL 50 MG/ML VIAL IV PUSH ONE (14:30)
[2018-01-15] MEDS ORDERED: methylPREDNISolone SOD SUCC 125 MG/2 ML VIAL IV PUSH ONE (14:30)
[2018-01-15] MEDS ORDERED: SODIUM CHLORIDE 0.9% FLUSH 10 ML FLUSH IVF PRN (14:30)
[2018-01-15] MEDS ORDERED: SODIUM CHLOR 0.9% 1000 ML INJ 1,000 ML IV ONE (14:30)
[2018-01-15 14:40] LABS: BASOPHIL % 0.5 % (0.0-2.0); EOSINOPHIL # 0.1 TH/MM3 (0-0.4); EOSINOPHIL % 1.3 % (0.0-4.0); HEMATOCRIT 40.2 % (35.0-46.0); HEMOGLOBIN 13.5 GM/DL (11.6-15.3); LYMPHOCYTE # 1.3 TH/MM3 (1.0-4.8); MEAN CELL VOLUME 97.1 FL (80.0-100.0); MEAN CORPUSCULAR HEMOGLOBIN 32.6 PG (27.0-34.0); MEAN CORPUSCULAR HGB CONC 33.5 % (32.0-36.0); MEAN PLATELET VOLUME 9.3 FL (7.0-11.0); MONO % 5.5 % (0.0-8.0); MONOCYTE # 0.4 TH/MM3 (0-0.9); NEUT % 75.7 % (16.0-70.0); PLATELET COUNT 313 TH/MM3 (150-450); RED BLOOD COUNT 4.14 MIL/MM3 (4.00-5.30); RED CELL DISTRIBUTION WIDTH 12.6 % (11.6-17.2); WHITE BLOOD COUNT 7.9 TH/MM3 (4.0-11.0)
--- NOTE | 2018-01-15 14:46 | RADRPT ---
EXAM DATE: 01/15/2018 2:43 PM EDT AGE/SEX: 57 years / Female INDICATIONS: Chest pain. CLINICAL DATA: This is the patient's initial encounter. Patient reports that signs and symptoms have been present for 1 day and indicates a pain score of 5/10. MEDICAL/SURGICAL HISTORY: . high cholesterol None. COMPARISON: No prior exams available for comparison. FINDINGS: Minimal parenchymal changes left base. Right lung clear. The heart and pulmonary vascularity are norm al. The portion of the bony skeleton visualized is unremarkable. CONCLUSION: Minimal parenchymal changes left base. Electronically signed by: Pedro Joyce MD 01/15/2018 2:45 PM EDT
--- NOTE | 2018-01-15 14:57 | PD ---
HPI Chief Complaint: Chest Pain Time Seen by Provider: 14:08 Travel History International Travel<30 days: No Contact w/Intl Traveler<30days: No Traveled to known affect area: No History of Present Illness HPI Patient is a 57-year-old female with history of pulmonary emboli, hypothyroidism , hyperlipidemia, presents the emergency room with complaints of chest pain. Patient reports that since this afternoon, she has been having left-sided sharp and stabbing chest pain which intermittently radiates down her left arm. Reports that she is also feeling palpitations and sometimes skipped beats. Patient reports onset of symptoms while eating lunch and relaxing, nothing makes symptoms better or worse. Patient reports that symptoms have been on and off and only last for a few minutes at a time, reports that she has been feeling short of breath with her symptoms. Patient reports that she does follow -up with Dr. Cabrera her special agent in charge, reports that she did have a recent stress test which was negative, denies history of any coronary artery disease. Patient reports that she has been feeling short of breath along with her chest pain, denies any diaphoresis. Patient also reports history of small PEs, she was on Eliquis in the past and is currently not on any anticoagulants. Patient denies any recent travels or trips, no cough or congestion. PFSH Past Medical History Hx Anticoagulant Therapy: Yes (ELIQUIS) Cardiovascular Problems: Yes Chest Pain: Yes Diminished Hearing: No Gastrointestinal Disorders: Yes GERD: Yes Hiatal Hernia: Yes Musculoskeletal: Yes Respiratory: Yes (SHILPI PULMONARY EMBOLI) Migraines: Yes ?: Not Menopausal: Yes : 2 Para: 2 Past Surgical History Gynecologic Surgery: Yes Hysterectomy: Yes Neurologic Surgery: Yes (NECK FUSION X 2, BACK FUSION X 1) Tonsillectomy: Yes Other Surgery: Yes (HYSTERECTOMY, NECK/BACK FUSION, BREAST AUGMENTATION, RHINOPLASTY) Social History Alcohol Use: Yes Tobacco Use: No Substance Use: No Allergies-Medications (Allergen,Severity, Reaction): Coded Allergies: Sulfa (Sulfonamide Antibiotics) (Unverified Allergy, Severe, Anaphylaxis, 01/15/18) diatrizoate meglumine (Unverified Allergy, Severe, Rash, 01/15/18) gadobenic acid (Unverified Allergy, Severe, Rash, 01/15/18) gadodiamide (Unverified Allergy, Severe, Rash, 01/15/18) gadoteridol (Unverified Allergy, Severe, Rash, 01/15/18) iodine (Unverified Allergy, Severe, Rash, 01/15/18) iodixanol (Unverified Allergy, Severe, Rash, 01/15/18) iohexol (Unverified Allergy, Severe, Rash, 01/15/18) potassium iodide (Unverified Allergy, Severe, Rash, 01/15/18) povidone-iodine (Unverified Allergy, Severe, Rash, 01/15/18) sodium iodide (Unverified Allergy, Severe, Rash, 01/15/18) sodium iodide (Unverified Allergy, Severe, Rash, 01/15/18) shellfish derived (Verified Allergy, Unknown, 01/15/18) acetaminophen (Unverified Adverse Reaction, Unknown, itchy & red palms, ) pt. states above rx. meperidine (Unverified Adverse Reaction, Unknown, red rash, 01/15/18) BLISTER ON HAND propoxyphene (Unverified Adverse Reaction, Unknown, itchy & red palms, ) pt. states above rx. Reported Meds & Prescriptions Reported Meds & Active Scripts Active Reported Rosuvastatin (Rosuvastatin Calcium) 10 Mg Tab 10 Mg PO HS Bethanechol 10 Mg Tab 10 Mg PO QID Valium (Diazepam) 10 Mg Tab 10 Mg PO DAILY PRN Fiorinal (Butalbital/Aspirin/Caffeine) 50-325-40 Mg Cap 1 Cap PO Q4H PRN Do not exceed 6 capsules/day. Oxycodone (Oxycodone HCl) 30 Mg Tab 30 Mg PO Q8H PRN Synthroid (Levothyroxine Sodium) 100 Mcg Tab 100 Mcg PO EVERY OTHER DAY BRAND MEDICALLY NECESSARY Oxycontin (Oxycodone HCl) 40 Mg Tab.er.12h 80 Mg PO BID Review of Systems General / Constitutional: No: Fever Eyes: No: Visual changes HENT: No: Headaches Cardiovascular: Positive: Chest Pain or Discomfort, Palpitations, Tachycardia Respiratory: Positive: Shortness of Breath Gastrointestinal: No: Abdominal Pain Genitourinary: No: Dysuria Musculoskeletal: No: Pain Skin: No Rash Neurologic: No: Weakness Psychiatric: No: Depression Endocrine: No: Polydipsia Hematologic/Lymphatic: No: Easy Bruising Physical Exam Narrative GENERAL: Mild distress SKIN: Focused skin assessment warm/dry. HEAD: Atraumatic. Normocephalic. EYES: Pupils equal and round. No scleral icterus. No injection or drainage. ENT: No nasal bleeding or discharge. Mucous membranes pink and moist. NECK: Trachea midline. No JVD. CARDIOVASCULAR: Regular rate and rhythm. No murmur appreciated. RESPIRATORY: No accessory muscle use. Clear to auscultation. Breath sounds equal bilaterally. GASTROINTESTINAL: Abdomen soft, non-tender, nondistended. Hepatic and splenic margins not palpable. MUSCULOSKELETAL: No obvious deformities. No clubbing. No cyanosis. No edema. NEUROLOGICAL: Awake and alert. No obvious cranial nerve deficits. Motor grossly within normal limits. Normal speech. PSYCHIATRIC: Appropriate mood and affect; insight and judgment normal. Data Data Last Documented VS Vital Signs Date Time Temp Pulse Resp B/P (MAP) Pulse Ox O2 Delivery O2 Flow Rate FiO2 01/15/18 15:29 18 01/15/18 15:05 80 143/93 (110) 99 Room Air 01/15/18 14:00 98.1 Orders Orders Electrocardiogram (01/15/18 14:23) B-Type Natriuretic Peptide (01/15/18 14:23) Ckmb (Isoenzyme) Profile (01/15/18 14:23) Complete Blood Count With Diff (01/15/18 14:23) Comprehensive Metabolic Panel (01/15/18 14:23) Magnesium (Mg) (01/15/18 14:23) Prothrombin Time / Inr (Pt) (01/15/18 14:23) Act Partial Throm Time (Ptt) (01/15/18 14:23) Troponin I (01/15/18 14:23) Lipase (01/15/18 14:23) Chest, Single Ap (01/15/18 14:23) Ecg Monitoring (01/15/18 14:23) Iv Access Insert/Monitor (01/15/18 14:23) Oximetry (01/15/18 14:23) Sodium Chloride 0.9% Flush (Ns Flush) (01/15/18 14:30) Ct Pulmonary Angiogram (01/15/18 14:23) Sodium Chlor 0.9% 1000 Ml Inj (Ns 1000 M (01/15/18 14:30) Methylprednisolone So Succ Inj (Solumedr (01/15/18 14:30) Diphenhydramine Inj (Benadryl Inj) (01/15/18 14:30) Thyroid Stimulating Hormone (01/15/18 14:24) Nitroglycerin Sl (Nitrostat Sl) (01/15/18 15:00) Iohexol 350 Inj (Omnipaque 350 Inj) (01/15/18 16:11) Aspirin Chew (Aspirin Chew) (01/15/18 16:15) Labs Laboratory Tests Test 01/15/18 14:30 White Blood Count 7.9 TH/MM3 Red Blood Count 4.14 MIL/MM3 Hemoglobin 13.5 GM/DL Hematocrit 40.2 % Mean Corpuscular Volume 97.1 FL Mean Corpuscular Hemoglobin 32.6 PG Mean Corpuscular Hemoglobin Concent 33.5 % Red Cell Distribution Width 12.6 % Platelet Count 313 TH/MM3 Mean Platelet Volume 9.3 FL Neutrophils (%) (Auto) 75.7 % Lymphocytes (%) (Auto) 17.0 % Monocytes (%) (Auto) 5.5 % Eosinophils (%) (Auto) 1.3 % Basophils (%) (Auto) 0.5 % Neutrophils # (Auto) 6.0 TH/MM3 Lymphocytes # (Auto) 1.3 TH/MM3 Monocytes # (Auto) 0.4 TH/MM3 Eosinophils # (Auto) 0.1 TH/MM3 Basophils # (Auto) 0.0 TH/MM3 CBC Comment DIFF FINAL Differential Comment Prothrombin Time 10.0 SEC Prothromb Time International Ratio 1.0 RATIO Activated Partial Thromboplast Time 23.3 SEC Blood Urea Nitrogen 14 MG/DL Creatinine 1.07 MG/DL Random Glucose 96 MG/DL Total Protein 8.1 GM/DL Albumin 4.2 GM/DL Calcium Level 8.9 MG/DL Magnesium Level 2.7 MG/DL Alkaline Phosphatase 83 U/L Aspartate Amino Transf (AST/SGOT) 21 U/L Alanine Aminotransferase (ALT/SGPT) 37 U/L Total Bilirubin 0.3 MG/DL Sodium Level 138 MEQ/L Potassium Level 4.0 MEQ/L Chloride Level 100 MEQ/L Carbon Dioxide Level 29.7 MEQ/L Anion Gap 8 MEQ/L Estimat Glomerular Filtration Rate 53 ML/MIN Total Creatine Kinase 51 U/L Troponin I LESS THAN 0.02 NG/ML B-Type Natriuretic Peptide 24 PG/ML Lipase 222 U/L MDM Medical Decision Making Medical Screen Exam Complete: Yes Emergency Medical Condition: Yes Medical Record Reviewed: Yes Interpretation(s) EKG at 1413 normal sinus rhythm at 83 bpm, QT/QTc 354/394, there are T-wave inversions in V1 to V3, EKG similar to previous EKG from March 01, 2017 Differential Diagnosis Anxiety reaction, pulmonary embolism, ACS, arrhythmia Narrative Course During the course of the patients emergency department visit, the patients history, examination, and differential diagnosis were reviewed with the patient. The patient was placed on a conveyor monitor with oximetry and frequent blood pressure monitoring. The patient had an IV access obtained and blood work sent for analysis. The patient was initially provided IVF and sl nitro Patient has tolerated CTA to rule out PE in the past after having steroid protocol. Patient will be given Solu-Medrol as well as Benadryl 1 hour prior to her CTA The patients laboratory studies were reviewed and remarkable for Laboratory Tests Test 01/15/18 14:30 White Blood Count 7.9 TH/MM3 (4.0-11.0) Red Blood Count 4.14 MIL/MM3 (4.00-5.30) Hemoglobin 13.5 GM/DL (11.6-15.3) Hematocrit 40.2 % (35.0-46.0) Mean Corpuscular Volume 97.1 FL (80.0-100.0) Mean Corpuscular Hemoglobin 32.6 PG (27.0-34.0) Mean Corpuscular Hemoglobin Concent 33.5 % (32.0-36.0) Red Cell Distribution Width 12.6 % (11.6-17.2) Platelet Count 313 TH/MM3 (150-450) Mean Platelet Volume 9.3 FL (7.0-11.0) Neutrophils (%) (Auto) 75.7 % (16.0-70.0) Lymphocytes (%) (Auto) 17.0 % (9.0-44.0) Monocytes (%) (Auto) 5.5 % (0.0-8.0) Eosinophils (%) (Auto) 1.3 % (0.0-4.0) Basophils (%) (Auto) 0.5 % (0.0-2.0) Neutrophils # (Auto) 6.0 TH/MM3 (1.8-7.7) Lymphocytes # (Auto) 1.3 TH/MM3 (1.0-4.8) Monocytes # (Auto) 0.4 TH/MM3 (0-0.9) Eosinophils # (Auto) 0.1 TH/MM3 (0-0.4) Basophils # (Auto) 0.0 TH/MM3 (0-0.2) CBC Comment DIFF FINAL Differential Comment Prothrombin Time 10.0 SEC (9.8-11.6) Prothromb Time International Ratio 1.0 RATIO Activated Partial Thromboplast Time 23.3 SEC (24.3-30.1) Blood Urea Nitrogen 14 MG/DL (7-18) Creatinine 1.07 MG/DL (0.50-1.00) Random Glucose 96 MG/DL (74-106) Total Protein 8.1 GM/DL (6.4-8.2) Albumin 4.2 GM/DL (3.4-5.0) Calcium Level 8.9 MG/DL (8.5-10.1) Magnesium Level 2.7 MG/DL (1.5-2.5) Alkaline Phosphatase 83 U/L (45-117) Aspartate Amino Transf (AST/SGOT) 21 U/L (15-37) Alanine Aminotransferase (ALT/SGPT) 37 U/L (10-53) Total Bilirubin 0.3 MG/DL (0.2-1.0) Sodium Level 138 MEQ/L (136-145) Potassium Level 4.0 MEQ/L (3.5-5.1) Chloride Level 100 MEQ/L (98-107) Carbon Dioxide Level 29.7 MEQ/L (21.0-32.0) Anion Gap 8 MEQ/L (5-15) Estimat Glomerular Filtration Rate 53 ML/MIN (>89) Total Creatine Kinase 51 U/L (26-192) Troponin I LESS THAN 0.02 NG/ML B-Type Natriuretic Peptide 24 PG/ML (0-100) Lipase 222 U/L (73-393) Radiology studies were reviewed and remarkable for Last Impressions Chest X-Ray 01/15/181422 Signed Impressions: CONCLUSION: Minimal parenchymal changes left base. CT Angiography 01/15/181422 Impressions: CONCLUSION: 1. No pulmonary embolus. 2. Stable small right lung nodules. case reviewed with Dr. Cabrera as patient had a recent normal nuclear stress test, agrees with chest pain obs in CDU, request that I place consult to him. Recommends that I trend her troponins. Diagnosis Primary Impression: Chest pain Additional Impression: Palpitations Admitting Information Admitting Physician Requests: Observation Donna Mansfield DO Jan 15, 2018 14:57
[2018-01-15 15:03] LABS: ALBUMIN 4.2 GM/DL (3.4-5.0); ALT (GPT) 37 U/L (10-53); AST (GOT) 21 U/L (15-37); BICARBONATE 29.7 MEQ/L (21.0-32.0); BLOOD UREA NITROGEN 14 MG/DL (7-18); CALCIUM 8.9 MG/DL (8.5-10.1); CHLORIDE 100 MEQ/L (98-107); CREATININE 1.07 MG/DL (0.50-1.00); GLOMERULAR FILTRATION RATE 53 ML/MIN (>89); GLUCOSE,RANDOM 96 MG/DL (74-106); MAGNESIUM 2.7 MG/DL (1.5-2.5); SODIUM (NA) 138 MEQ/L (136-145)
[2018-01-15] MEDS: NITROGLYCERIN 0.4 MG SL 25 TABS/BTL SL SCH ×3 (15:03→15:10)
[2018-01-15 15:07] LABS: ALKALINE PHOSPHATASE 83 U/L (45-117); TOTAL BILIRUBIN ADULT 0.3 MG/DL (0.2-1.0); TOTAL PROTEIN 8.1 GM/DL (6.4-8.2); TROPONIN I LESS THAN 0.02 NG/ML (0.02-0.05)
[2018-01-15] MEDS ORDERED: IOHEXOL 350 MG/ML 10 ML VIAL (for RAD DIAG) IVCONTRAST ONE (16:11)
[2018-01-15] MEDS ORDERED: ASPIRIN 81 MG CHEW TAB PO ONE (16:15)
--- NOTE | 2018-01-15 16:18 | RADRPT ---
EXAM DATE: 01/15/2018 4:05 PM EDT AGE/SEX: 57 years / Female INDICATIONS: Short of breath. CLINICAL DATA: This is the patient's initial encounter. Patient reports that signs and symptoms have been present for 1 day and indicates a pain score of 0/10. MEDICAL/SURGICAL HISTORY: Hiatal hernia. Bilateral pulmonary embolism. Tonsillectomy. Hysterectom y. RADIATION DOSE: 16.85 CTDI (mGy) COMPARISON: [facility] [place], CT PULMONARY ANGIOGRAM, 03/01/2017. . TECHNIQUE: Volumetric scanning was performed using a multi-row detector CT scanner during bolus infu celia of 70 ml Omnipaque 350 (iohexol) nonionic water-soluble contrast as a single exam dose. The [place] a was post processed with a variety of visualization algorithms including full volume maximum intensi ty projection and sliding thin slab reformation. Using automated exposure control and adjustment of t he mA and/or kV according to patient size, radiation dose was kept as low as reasonably achievable to obtain optimal diagnostic quality images. DICOM format image data is available electronically for r eview and comparison. FINDINGS: Pulmonary Arteries: No filling defects are seen in the pulmonary arteries out to the subsegmental ve ssels. The left and right pulmonary arteries are normal in diameter. Lung: There is a stable 4 mm nodule in the lateral right midlung related to the major fissure. There is also a 3 mm nodule in the right upper lung. There are some mild scattered bullous change. Effusion: None. Mediastinum: No evidence of mediastinal or hilar adenopathy. Other: The axilla is unremarkable. There does appear to be some asymmetry with the left kidney appea ring small. Only the superior aspects of the kidneys were included. Bilateral breast implants are pre sent. CONCLUSION: 1. No pulmonary embolus. 2. Stable small right lung nodules. Electronically signed by: Jose Raul Calderon MD 01/15/2018 4:16 PM EDT
[2018-01-15] MEDS ORDERED: ASPIRIN 325 MG/CAFFEINE 40 MG/BUTALBITAL 50 MG CAP PO ONE (16:45)
[2018-01-15] MEDS ORDERED: NITROGLYCERIN 0.4 MG SL 25 TABS/BTL SL PRN (17:00)
[2018-01-15] MEDS ORDERED: ONDANSETRON ODT 4 MG TAB PO PRN (17:00)
[2018-01-15] MEDS ORDERED: ZOFR8TAB4 SL (17:52)
[2018-01-15] MEDS: oxyCODONE HCL 80 MG CONTROLLED RELEASE TAB PO SCH (18:51)
[2018-01-15 19:00] LABS: TROPONIN I LESS THAN 0.02 NG/ML (0.02-0.05)
[2018-01-15] MEDS ORDERED: oxyCODONE HCL 80 MG CONTROLLED RELEASE TAB PO SCH (21:00)
[2018-01-15 22:17] LABS: TROPONIN I LESS THAN 0.02 NG/ML (0.02-0.05)
[2018-01-16 00:07] VITALS: PULSE 74
[2018-01-16 00:14] VITALS: BP 127/94; PULSE 86; RESP 16; TEMP 98.4; O2SAT 96
[2018-01-16 03:57] VITALS: BP 129/74; PULSE 79; RESP 16; TEMP 98; O2SAT 98
[2018-01-16] MEDS: oxyCODONE HCL 80 MG CONTROLLED RELEASE TAB PO SCH (05:57)
[2018-01-16 07:13] VITALS: PULSE 79
[2018-01-16 08:00] VITALS: BP 148/89; PULSE 77; RESP 16; TEMP 98.4; O2SAT 95
--- NOTE | 2018-01-16 08:31 | HHI.HP ---
HPI Primary Care Physician Krystal Torres DO Chief Complaint Chest pain History of Present Illness 57-year-old female with history of PE, hypothyroidism, and hyperlipidemia presents emergency room for further evaluation of nonexertional chest pain. Onset yesterday afternoon. Location left anterior chest. Characterized as sharp, shooting pain. Radiation to left arm. Severity 5/10. Duration 4 hours. No associated symptoms of nausea, vomiting, dyspnea, or diaphoresis. No no precipitating or relieving factors. Endorses similar pain in the past. Follows a Dr. Cabrera, reports normal cardiac catheterization 8 years ago, completed at [facility]. Reports palpitations 2 days. No current chest pain or further palpitations since arrival to the ER. Review of Systems General: No fatigue,weakness, fever, chills, or recent illness. HEENT: No TRUJILLO, no vision changes, no nasal congestion or drainage, no dysphasia CV: No current chest pain, otherwise as stated above. No further palpitations. When she experienced palpitations denied dizziness. RESP: No SOB, cough, wheeze. GI: No nausea, vomiting, bowel changes, diarrhea, constipation, pain, distention , melena, or blood in the stool. : No dysuria, urgency, frequency. Reports renal mass, requesting further testing during current hospital visit. EXT: No lower leg edema MS: No discomfort, injury, or change in ROM NEURO: No change in memory, dizziness, difficulty with balance, LOC, or motor/ sensory deficits PSYCH: No anxiety, depression, or suicidal ideation SKIN: No rashes, no concerning lesions Past Family Social History Allergies: Coded Allergies: Sulfa (Sulfonamide Antibiotics) (Unverified Allergy, Severe, Anaphylaxis, 01/15/18) diatrizoate meglumine (Unverified Allergy, Severe, Rash, 01/15/18) gadobenic acid (Unverified Allergy, Severe, Rash, 01/15/18) gadodiamide (Unverified Allergy, Severe, Rash, 01/15/18) gadoteridol (Unverified Allergy, Severe, Rash, 01/15/18) iodine (Unverified Allergy, Severe, Rash, 01/15/18) iodixanol (Unverified Allergy, Severe, Rash, 01/15/18) iohexol (Unverified Allergy, Severe, Rash, 01/15/18) potassium iodide (Unverified Allergy, Severe, Rash, 01/15/18) povidone-iodine (Unverified Allergy, Severe, Rash, 01/15/18) sodium iodide (Unverified Allergy, Severe, Rash, 01/15/18) sodium iodide (Unverified Allergy, Severe, Rash, 01/15/18) shellfish derived (Verified Allergy, Unknown, 01/15/18) acetaminophen (Unverified Adverse Reaction, Unknown, itchy & red palms, ) pt. states above rx. meperidine (Unverified Adverse Reaction, Unknown, red rash, 01/15/18) BLISTER ON HAND propoxyphene (Unverified Adverse Reaction, Unknown, itchy & red palms, ) pt. states above rx. Past Medical History PE, hypothyroidism, chronic back pain, hyperlipidemia, GERD, migraine Past Surgical History Hysterectomy, 2 neck fusion, 2 back fusion, rhinoplasty, breast augmentation Reported Medications Reported Meds & Active Scripts Active Reported Zofran Odt (Ondansetron Odt) 8 Mg Tab 8 Mg SL Q8H PRN Rosuvastatin (Rosuvastatin Calcium) 10 Mg Tab 10 Mg PO HS Bethanechol 10 Mg Tab 10 Mg PO QID Valium (Diazepam) 10 Mg Tab 10 Mg PO DAILY PRN Fiorinal (Butalbital/Aspirin/Caffeine) 50-325-40 Mg Cap 1 Cap PO Q4H PRN Do not exceed 6 capsules/day. Oxycodone (Oxycodone HCl) 30 Mg Tab 30 Mg PO Q8H PRN Synthroid (Levothyroxine Sodium) 100 Mcg Tab 100 Mcg PO EVERY OTHER DAY BRAND MEDICALLY NECESSARY Oxycontin (Oxycodone HCl) 40 Mg Tab.er.12h 80 Mg PO BID Active Ordered Medications Current Medications Medications (Trade) Dose Ordered Sig/Victor M Route Start Time Stop Time Status Last Admin (NS Flush) 2 ml UNSCH PRN IVF 01/15/18 14:30 (Nitrostat Sl) 0.4 mg Q5M PRN SL 01/15/18 17:00 (Aspirin) 325 mg DAILY PO 01/16/18 09:00 (Zofran Odt) 4 mg Q6H PRN PO 01/15/18 17:00 01/16/18 05:58 (OxyCONTIN CR) 80 mg Q12H PO 01/15/18 18:00 01/16/18 05:57 Family History Father CABG 3 age 59. Mother had NV age 61. Social History No known coronary artery disease, hypertension, or diabetes. Known hyperlipidemia. Former smoker, quitting early 30s. [id number] history. Denies any alcohol or illegal drug use. . Past cardiac testing 03/02/17 Lexiscan-no perfusion deficits, EF 70% Reports normal cardiac catheterization 8 years ago. 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 Physical Exam Vital Signs Vital Signs Date Time Temp Pulse Resp B/P (MAP) Pulse Ox O2 Delivery O2 Flow Rate FiO2 01/16/18 03:57 98.0 79 16 129/74 (92) 98 01/16/18 00:14 98.4 86 16 127/94 (105) 96 01/16/18 00:07 74 01/15/18 21:44 18 01/15/18 20:02 92 01/15/18 19:47 99 21 01/15/18 19:45 98.6 82 16 140/82 (101) 95 01/15/18 18:57 98.7 93 18 142/91 (108) 96 01/15/18 17:42 01/15/18 15:29 18 01/15/18 15:05 80 18 143/93 (110) 99 Room Air 01/15/18 14:26 99 Room Air 01/15/18 14:10 90 01/15/18 14:00 98.1 93 16 119/85 (96) 98 Physical Exam GENERAL: Alert WN, WD, NAD, anxious, male somewhat argumentative HEAD: NC, AT EYES: Sclera clear, conjunctiva without injection, pupils equal and round ENT: Mucous membranes pink and moist CV: RRR, without murmur, rub, gallop, no JVD, no S3-S4. No carotid bruits. Chest wall nontender with palpation. RESP: Clear lungs throughout bilateral, no crackles, wheeze, rhonchi, symmetrical chest rise, nonlabored, able to speak in full sentences ABD: Soft, NT, ND, no masses, positive bowel tones EXT: Pulses +2x4, no dependent edema MS: Normal tone x4 extremities, nontender, no obvious deformities, full range of motion NEURO: CN II through CN XII grossly intact, motor strength 5/5 PSYCH: A+O x3, flat affect, anxious mood, talkative, frequent redirection of topic required, questionable insight and judgment SKIN: Normal turgor, normal texture, no lesions, no rashes Laboratory Laboratory Tests Test 01/15/18 14:30 01/15/18 18:16 01/15/18 21:38 White Blood Count 7.9 Red Blood Count 4.14 Hemoglobin 13.5 Hematocrit 40.2 Mean Corpuscular Volume 97.1 Mean Corpuscular Hemoglobin 32.6 Mean Corpuscular Hemoglobin Concent 33.5 Red Cell Distribution Width 12.6 Platelet Count 313 Mean Platelet Volume 9.3 Neutrophils (%) (Auto) 75.7 Lymphocytes (%) (Auto) 17.0 Monocytes (%) (Auto) 5.5 Eosinophils (%) (Auto) 1.3 Basophils (%) (Auto) 0.5 Neutrophils # (Auto) 6.0 Lymphocytes # (Auto) 1.3 Monocytes # (Auto) 0.4 Eosinophils # (Auto) 0.1 Basophils # (Auto) 0.0 CBC Comment DIFF FINAL Differential Comment Prothrombin Time 10.0 Prothromb Time International Ratio 1.0 Activated Partial Thromboplast Time 23.3 Blood Urea Nitrogen 14 Creatinine 1.07 Random Glucose 96 Total Protein 8.1 Albumin 4.2 Calcium Level 8.9 Magnesium Level 2.7 Alkaline Phosphatase 83 Aspartate Amino Transf (AST/SGOT) 21 Alanine Aminotransferase (ALT/SGPT) 37 Total Bilirubin 0.3 Sodium Level 138 Potassium Level 4.0 Chloride Level 100 Carbon Dioxide Level 29.7 Anion Gap 8 Estimat Glomerular Filtration Rate 53 Total Creatine Kinase 51 49 46 Troponin I LESS THAN 0.02 LESS THAN 0.02 LESS THAN 0.02 B-Type Natriuretic Peptide 24 Lipase 222 Thyroid Stimulating Hormone 3rd Gen 46.500 Result Diagram: 01/15/18 1430 01/15/18 1430 Imaging Last 48 hours Impressions Myocardial Perfusion Scan Nuc Med 01/16/18 0000 Signed Impressions: CONCLUSION: 1. No significant fixed or reversible perfusion defect is identified. 2. Normal left ventricle wall motion and ejection fraction. Chest X-Ray 01/15/18 1423 Signed Impressions: CONCLUSION: Minimal parenchymal changes left base. CT Angiography 01/15/18 1423 Signed Impressions: CONCLUSION: 1. No pulmonary embolus. 2. Stable small right lung nodules. Course EKG Normal sinus rhythm, no ST T segment Caprini VTE Risk Assessment Caprini VTE Risk Assessment: No/Low Risk (score <= 1) Caprini Risk Assessment Model Point Value = 1 Point Value = 2 Point Value = 3 Point Value = 5 Age 41-60 Minor surgery BMI > 25 kg/m2 Swollen legs Varicose veins or History of unexplained or recurrent spontaneous Oral contraceptives or hormone replacement Sepsis (< 1 month) Serious lung disease, including pneumonia (< 1 month) Abnormal pulmonary function Acute myocardial infarction Congestive heart failure (< 1 month) History of inflammatory bowel disease Medical patient at bed rest Age 61-74 Arthroscopic surgery Major open surgery (> 45 min) Laparoscopic surgery (> 45 min) Malignancy Confined to bed (> 72 hours) Immobilizing plaster cast Central venous access Age >= 75 History of VTE Family history of VTE Factor V Leiden Prothrombin [id number] Lupus anticoagulant Anticardiolipin antibodies Elevated serum homocysteine Heparin-induced thrombocytopenia Other congenital or acquired thrombophilia Stroke (< 1 month) Elective arthroplasty Hip, pelvis, or leg fracture Acute spinal cord injury (< 1 month) Prophylaxis Regimen Total Risk Factor Score Risk Level Prophylaxis Regimen 0-1 Low Early ambulation 2 Moderate Order ONE of the following: *Sequential Compression Device (SCD) *Heparin 5000 units SQ BID 3-4 Higher Order ONE of the following medications: *Heparin 5000 units SQ TID *Enoxaparin/Lovenox 40 mg SQ daily (WT < 150 kg, CrCl > 30 mL/min) *Enoxaparin/Lovenox 30 mg SQ daily (WT < 150 kg, CrCl > 10-29 mL/min) *Enoxaparin/Lovenox 30 mg SQ BID (WT < 150 kg, CrCl > 30 mL/min) AND/OR *Sequential Compression Device (SCD) 5 or more Highest Order ONE of the following medications: *Heparin 5000 units SQ TID (Preferred with Epidurals) *Enoxaparin/Lovenox 40 mg SQ daily (WT < 150 kg, CrCl > 30 mL/min) *Enoxaparin/Lovenox 30 mg SQ daily (WT < 150 kg, CrCl > 10-29 mL/min) *Enoxaparin/Lovenox 30 mg SQ BID (WT < 150 kg, CrCl > 30 mL/min) AND *Sequential Compression Device (SCD) Assessment and Plan Assessment and Plan #1 Atypical chest pain-admitted chest pain center. ACS ruled out with 3 sets of EKGs and cardiac enzymes. Seen and evaluated by Dr. Chi Dickson. Dr. Dickson also spoke with patient's assessor, Dr. Cabrera. Patient has not had a recent stress test as indicated in the ER record. Proceed with Lexiscan. If unremarkable plans to be to discharge home with follow-up with Dr. Kiran and her primary care provider. In regards to her concern over kidney mass can requesting further testing she has been instructed she will have to follow-up with her primary care provider. CT pulmonary angiogram report will be given upon discharge for stable right nodules identified chest x-ray. Instructed to follow-up with her primary care provider. Laboratory studies also provided discharge, TSH elevated and titration in medication will most likely be required. Verbalized understanding. Ghazal Slater Jan 16, 2018 08:31
[2018-01-16] MEDS ORDERED: ASPIRIN 325 MG TAB PO SCH (09:00)
[2018-01-16] MEDS ORDERED: REGADENOSON INJ 0.4 MG/5 ML SYR ONE (11:25)
[2018-01-16 13:00] VITALS: BP 126/71; PULSE 88; RESP 18; O2SAT 98
[2018-01-16] MEDS ORDERED: BETHANECHOL CHL 10 MG TAB PO SCH (13:00)
--- NOTE | 2018-01-16 13:12 | RADRPT ---
EXAM DATE: 01/16/2018 12:52 PM EDT AGE/SEX: 57 years / Female INDICATIONS:Angina. . Left chest pain radiating down left arm with dyspnea. CLINICAL DATA: This is the patient's initial encounter. Patient reports that signs and symptoms have been present for 1 day and indicates a pain score of 7/10. MEDICAL/SURGICAL HISTORY: Hypercholesterolemia. Hiatal hernia. Gastroesophageal reflux diseas e. Hysterectomy. Tonsillectomy. Cardiac cauterization. COMPARISON: No prior exams available for comparison. No external comparison. DOSE: 25.9 mCi Tc 99m Myoview at stress 8.5 mCi [id number] at rest 0.4 mg Lexiscan STRESS SYMPTOMS: Flush. EJECTION FRACTION: >70 % TECHNIQUE: The patient underwent pharmacologic stress with infusion of prescribed dose. Continuous ECG tracing was monitored during stress. Gated SPECT imaging was performed after stress and conventi onal SPECT imaging was performed at rest. The examination was performed on a SPECT/CT scanner, both attenuation and non-corrected datasets were reviewed. FINDINGS: Distribution: The maximum perfused segment at stress is in the anterolateral wall. Perfusion Study: The pattern of perfusion at stress is within normal limits. No significant fixed o r reversible perfusion defect is identified. Gated Study: There are intact wall motion and wall thickening without hypokinetic or dyskinetic segm ents. The ejection fraction is calculated at >70%. RISK CATEGORY: Low (<1% Annual Motality Rate) CONCLUSION: 1. No significant fixed or reversible perfusion defect is identified. 2. Normal left ventricle wall motion and ejection fraction. Electronically signed by: Jose Raul Lopez MD 01/16/2018 1:11 PM EDT
--- NOTE | 2018-01-16 13:18 | HHI.DCPOC ---
Discharge Care Plan Diagnosis: (1) Atypical chest pain (2) Palpitations Goals to Promote Your Health * To prevent worsening of your condition and complications * To maintain your health at the optimal level Directions to Meet Your Goals Take your medications as prescribed Follow your dietary instruction Follow activity as directed Keep your appointments as scheduled Take your immunizations and boosters as scheduled If your symptoms worsen call your PCP, if no PCP go to Urgent Care Center or Emergency Room Smoking is Dangerous to Your Health. Avoid second hand smoke Call the 24-hour hour crisis hotline for domestic abuse at Ghazal Slater Jan 16, 2018 13:18
[2018-01-16] MEDS ORDERED: ASPIRIN 325 MG/CAFFEINE 40 MG/BUTALBITAL 50 MG CAP PO PRN (13:30)
[2018-01-16] MEDS ORDERED: IBUPROFEN 600 MG TAB PO ONE (14:00)
--- NOTE | 2018-01-16 14:32 | MB ---
cc: Bharathi Cabrera MD DATE: 01/16/2018 HISTORY OF PRESENT ILLNESS: Hong is a very pleasant 57-year-old with history of pulmonary embolus. She was on Eliquis last year. I last saw her in the office 02/11/2017. I recommended a nuclear stress test and referral to Hematology. She is not sure if she saw Hematology. She did not followup with a nuclear stress test. I had recommended that she follow up with me in 3 months after the nuclear stress test, neither of which she did. She was taken off her Eliquis at the direction of her primary care doctor after 6 months of treatment. She presents to the emergency room with recurrent chest pain, sharp. Her chest pain has now completely resolved. Her chief complaint now is labile blood pressure. Her chest pain was further described as left-sided stabbing, radiating down left arm. PAST MEDICAL HISTORY: Also includes hypothyroidism, hyperlipidemia, hiatal hernia, neck fusion x2, back fusion, hysterectomy, tonsillectomy, [employer]ESSION[employer] surgery. SOCIAL HISTORY: She does drink alcohol. Denies tobacco use. ALLERGIES: SULFA CAUSES ANAPHYLAXIS. DIATRIZOATE CAUSES SEVERE RASH. GADOBENIC ACID CAUSES SEVERE RASH. GADODIAMIDE CAUSES SEVERE RASH. GADOTERIDOL CAUSES SEVERE RASH. IODINE CAUSES SEVERE RASH. IODIXANOL SEVERE RASH. IOHEXOL SEVERE RASH. POTASSIUM IODIDE SEVERE RASH. POVIDONE IODINE SEVERE RASH. SODIUM IODIDE SEVERE RASH. SHELLFISH: Unknown. ACETAMINOPHEN: ITCHY AND RED PALMS. MEPERIDINE BLISTER ON THE HANDS. PROPOXYPHENE ITCHY RED PALMS. MEDICATIONS PRIOR TO ADMISSION: 1. Simvastatin 10 mg at bedtime. 2. Bethanechol. 3. Valium. 4. Fiorinal. 5. Oxycodone. 6. Synthroid. 7. OxyContin. MEDICATIONS IN THE HOSPITAL: Levothyroxine 100 mcg every 48 hours, butalbital, ibuprofen 600 x 1, bethanechol 10 mg q.i.d., aspirin 325 daily. PHYSICAL EXAMINATION: VITAL SIGNS: Blood pressure 148/89, pulse 77, respiration rate 16, temperature 98.4. GENERAL: She is alert and oriented x3, in no acute distress. NECK: Supple. No JVD. No bruit. CARDIOVASCULAR: S1, S2. No murmurs, rubs, gallops. LUNGS: Clear to auscultation bilaterally. ABDOMEN: Soft, nontender, nondistended, positive bowel sounds. EXTREMITIES: No lower extremity edema. LABORATORY DATA: White count 7.9, hemoglobin 13.5, hematocrit 40.2, platelet count 313. INR is 1.0. Sodium 130, potassium 4.4, chloride 100, bicarbonate 29.7, BUN 14, creatinine 1.07. Troponin less than 0.02 x3. TSH is 46.50. BNP is 24. INR is 1.0. EKG: Normal sinus rhythm at 83 beats per minute, nonspecific ST-T wave changes. Baseline wander and artifact. REPEAT EKG: Normal sinus rhythm at 74 beats per minute, nonspecific ST-T wave changes. THIRD EKG: Normal sinus rhythm in the 80s per minute, nonspecific ST-T wave changes. IMAGING: The chest x-ray shows minimal parenchymal changes left base. Chest CT: No pulmonary embolus. Stable small right lung nodules. MYOCARDIAL PERFUSION STUDY: 01/16/2018 - Ejection fraction greater than 70%. No significant fixed or reversible perfusion defect is identified and normal and risk category is low, less than 1% annual mortality rate. DIAGNOSES: She has following diagnoses: 1. Pleuritic chest pain. 2. Atypical chest pain. 3. Hypertension. 4. Hypothyroidism. 5. Noncompliance with medical treatment and plan. 6. History of pulmonary embolus. 7. Hypertension. DISCUSSION: At this point in time I have reviewed her blood pressures in the hospital. They appear to be within normal range. She has no objective evidence of ischemia. Troponins are negative x3. EKG shows nonspecific ST-T wave changes. A nuclear stress test is low risk with no significant perfusion defects. The patient is currently chest pain free. I have explained to her that I cannot completely rule out an ischemic etiology to her symptoms without a left heart catheterization. The patient declines. She states that she is going to follow up with me in the office as soon as possible, which I have instructed her to do. MD YOUNG Cheatham/ERWIN , 01:49 PM , 02:31 PM
--- NOTE | 2018-01-17 08:13 | EKG ---
Date Performed: 01/15/2018 Time Performed: 21:21:24 PTAGE: 57 years EKG: Sinus rhythm POSSIBLE LEFT ATRIAL ENLARGEMENT LOW QRS VOLTAGE IN PRECORDIAL LEADS BORDERLINE ECG PREVIOUS TRACING : 01/15/2018 17.16 Since previous tracing, no significant change noted DOCTOR: Chi Dickson Interpretating Date/Time 01/17/2018 08:10:06
--- NOTE | 2018-01-17 08:14 | EKG ---
Date Performed: 01/15/2018 Time Performed: 17:16:05 PTAGE: 57 years EKG: Sinus rhythm LOW QRS VOLTAGE NONSPECIFIC T-WAVE ABNORMALITY ABNORMAL ECG PREVIOUS TRACING : 09/16/2017 17.55 Since previous tracing, no significant change noted DOCTOR: Chi Dickson Interpretating Date/Time 01/17/2018 08:10:52
--- NOTE | 2018-01-17 08:14 | EKG ---
Date Performed: 01/15/2018 Time Performed: 14:13:50 PTAGE: 57 years EKG: Sinus rhythm LOW QRS VOLTAGE IN PRECORDIAL LEADS MODERATE T-WAVE ABNORMALITY, CONSIDER ANTERIOR ISCHEMIA ABNORMAL ECG NO PREVIOUS TRACING DOCTOR: Chi Dickson Interpretating Date/Time 01/17/2018 08:11:00
--- NOTE | 2018-01-17 08:17 | TR ---
Date Performed: 01/16/2018 Time Performed: 11:44:24 DOCTOR: Chi Dickson DRUG LIST: CLINICAL HISTORY: ANGINA REASON FOR TEST: Angina REASON FOR ENDING: OBSERVATION: CONCLUSION: COMMENTS: Lexiscan stress test was performed under standard four minute protocol. Radionuclide was injected one minute prior to ending the test. No electrocardiographic abormalities were present t o suggest ischemia. Nuclear imaging and interpretation are pending.
[2018-01-18] MEDS ORDERED: LEVOTHYROXINE SODIUM 100 MCG TAB PO SCH (06:00)
== END 2018-01-16 15:08 | disposition home or self-care (01) ==
LOC: NEPD 13:56 → NEDA 16:35 → NEPFCDU 17:32
PROVIDERS: ADMIT Internal Medicine Cardiovascular Disease; ATTEND Internal Medicine Cardiovascular Disease
DX: R07.89 Other chest pain (principal); R94.6 Abnormal results of thyroid function studies; I10 Essential (primary) hypertension; E03.9 Hypothyroidism, unspecified; R06.02 Shortness of breath; E78.5 Hyperlipidemia, unspecified; R00.2 Palpitations; K21.9 Gastro-esophageal reflux disease without esophagitis; R94.31 Abnormal electrocardiogram [ECG] [EKG]; M54.9 Dorsalgia, unspecified; G89.29 Other chronic pain; Z98.1 Arthrodesis status; Z87.891 Personal history of nicotine dependence; Z79.899 Other long term (current) drug therapy; Z79.01 Long term (current) use of anticoagulants; Z91.19 Patient's noncompliance with other medical treatment and regimen; Z86.711 Personal history of pulmonary embolism; Z82.49 Family history of ischemic heart disease and other diseases of the circulatory system
CPT/HCPCS: 71045; 71275; 78452; 80053; 82550; 83690; 83735; 83880; 84443; 84484; 85025; 85610; 85730; 93005; 93017; 96361; 96374; 96375; 99285; A9502; G0378; J1200; J2785; J2930; J7030; Q9967